=== PATIENT | female | born 1960 | race Caucasian/White ===

== ENCOUNTER 2017-04-04 07:55 | Inpatient (IN) ==
[2017-03-30 10:22] LABS: Basophils # 0.1 10*3/uL (0.0-0.2); Basophils % 0.5 % (0.0-0.8); Eosinophils # 0.2 10*3/uL (0.0-0.87); Eosinophils % 1.4 % (0.00-10.9); Hematocrit 41.5 VOL% (35.7-47.0); Hemoglobin 14.1 GM/DL (12.0-16.0); Immature Granulocytes % 0.3 %; Immature Granulocytes Absolute 0.03 #; Lymphocytes # 2.2 10*3/uL (1.4-4.0); Lymphocytes % 18.7 % (21.3-54.2); Mean Corpuscular Hemoglobin 32 PG (27-34); Mean Corpuscular Volume 94.7 FL (87-102); Mean Platelet Volume 9.3 FL (9.6-12.0); Monocytes # 0.7 10*3/uL (0.11-0.8); Monocytes % 6.2 % (1.7-12.7); Neutrophils # 8.6 10*3/uL (1.4-7.4); Neutrophils % 72.9 % (38.7-73.9); Platelet Count 316 T/CUMM (130-400); Red Blood Count 4.38 MC/CUMM (3.8-5.5); White Blood Count 11.8 T/CUMM (4-12)
[2017-03-30 10:38] LABS: PT Patient Result 10.7 SECS; Partial Thromboplastin Time 27.6 SECS (0-40)
[2017-03-30 10:57] LABS: Albumin 4.2 G/DL (3.4-5.0); Bilirubin,Total 0.8 MG/DL (0.2-1.0); Calcium 10.2 MG/DL (8.5-10.1); Osmolality,Calculated 270.8 MOS/KG (273-304); Potassium 4.5 MMOL/L (3.5-5.1); Total Protein 7.3 G/DL (6.4-8.3)
--- NOTE | 2017-03-30 10:58 | EKG Report ---
Stationary ECG Study [facility] Test Date: 03/30/2017 10:56:30 AM Pat Name: EZ NAJERA Department: Room: Gender: F Gaming Surveillance Observer: LORRAINE MORALES 04-04-17 : 1960 Requested by: Clovis Terry Order Number: [id number] Reading MD: ANNETTE BARNES Intervals [place] Rate: 66 P: 79 NE: 174 QRS: 80 QRSD: 88 T: 77 QT: 426 QTc: 439 Interpretive Statements SINUS RHYTHM Electronically Signed On 03-30-17 11:50:44 CDT by ANNETTE BARNES [email or web address]
[2017-03-30 11:02] LABS: Apearance,Urine CLEAR (Clear); Bilirubin,Urine Negative (Negative); Blood, Urine Negative (Negative); Glucose,Urine (UA) Negative (Negative); Ketones,Urine Negative (Negative); Nitrite,Urine Negative (Negative); Protein,Urine Negative; RBC,Urine 1 /HPF (0-4); Urine Color Yellow (Yellow); Urine Specific Gravity 1.003 (1.001-1.035); Urine Urobilinogen < 2.0 EU/DL (0.2-1.0); WBC,Urine <1 /HPF (0-6)
--- NOTE | 2017-03-30 13:13 | XRay Report ---
XR chest 2V Indication: Preop respiratory evaluation. Chest 2 views: Comparison 08/11/2012. Heart size and mediastinal contour are now normal. Lungs are clear except for some scattered calcified granuloma posterior left lung base. Pleural spaces are clear. No bone lesions. Breast implants noted. Impression: No acute cardiopulmonary disease. PROCEDURE INTERPRETED AT [facility] Final Report Signed by: Nima Ludwig M.D.
[~2017-04-04 07:55] MED LIST: VANCOMYCIN INJ 1,000 MG in SODIUM CHLORIDE 0.9% 250 ML IV ONE
[2017-04-04] MEDS ORDERED: ceFAZolin 1,000 MG VIAL ONE (08:10)
[2017-04-04] MEDS ORDERED: SODIUM CHLORIDE 0.9% 100 ML IV ONE (08:10)
[2017-04-04] MEDS ORDERED: DIAZEPAM 5 MG TABLET PO ONE (08:41)
[2017-04-04] MEDS ORDERED: PANTOPRAZOLE 40 MG TABLET PO ONE ×2 (08:41→08:46)
[2017-04-04] MEDS ORDERED: DIAZEPAM 5 MG TABLET ONE (08:45)
[2017-04-04] MEDS ORDERED: LACTATED RINGERS 1,000 ML IV SCH (09:00)
[2017-04-04] MEDS ORDERED: VANCOMYCIN 1,000 MG VIAL ONE (09:37)
[2017-04-04] MEDS ORDERED: TRANEXAMIC ACID 1,000 MG/10 ML VIAL IV ONE (12:31)
[2017-04-04] MEDS ORDERED: NEOMYCIN/POLYMYXIN/BACITRACIN OINT 28.4 GM TUBE TOP ONE (13:13)
[2017-04-04] MEDS ORDERED: MIDAZOLAM 2 MG/2 ML VIAL ONE (13:18)
[2017-04-04] MEDS ORDERED: fentaNYL 100 MCG/2 ML VIAL ONE (13:18)
[2017-04-04] MEDS ORDERED: diphenhydrAMINE CAP 25 MG CAPSULE PO PRN (13:31)
[2017-04-04] MEDS ORDERED: MAGNESIUM HYDROXIDE SUSP 30 ML UDCUP PO PRN (13:31)
[2017-04-04] MEDS ORDERED: ONDANSETRON 4 MG/2 ML VIAL IV PRN (13:31)
[2017-04-04] MEDS ORDERED: ZALEPLON 5 MG CAPSULE PO PRN (13:31)
[2017-04-04] MEDS ORDERED: oxyCODONE IR 5 MG TABLET PO PRN ×2 (13:31)
[2017-04-04] MEDS ORDERED: MORPHINE 2 MG/1 ML SYRINGE IV PRN ×2 (13:31)
[2017-04-04] MEDS ORDERED: ROPIVACAINE 0.5% 30 ML VIAL ONE (13:35)
--- NOTE | 2017-04-04 13:37 | Operative Note ---
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 The limb was exsanguinated with Esmarch. Tourniquet was inflated to 300 mmHg. A median parapatellar approach was made. Femur was cut using an intramedullary guide and a 4 in 1 cutting jig in 5 degrees of valgus. Because of her hyperextension, a +4 mm femoral cut was made. ACL and menisci were excised. Tibia was cut using intramedullary guide. Patella was cut using freehand technique. Components were trialed. Tibial fin was prepared. Components are cemented in place using Palacos cement and modern cementing techniques. Cement was removed. A 1/8 inch Hemovac drain was placed. The knee was well-balanced and full range of motion with central tracking patella. She extended to neutral. Deep layers closed with 0-0 Vicryl. Superficial layers were closed with 2-0 and 3-0 Vicryl. Skin was approximated with haley. Bacitracin and a sterile dressing was applied. Patient was transferred to recovery. A postoperative adductor canal block is anticipated. COMPONENTS: The Mahad Persona system was used. 9 CR narrow femur, D natural tibia, 10 mm liner, 32 mm patella TOURNIQUET TIME: 38 minutes Surgeon / Physician: Clovis Winston Jr. Results - Labs CBC & BMP: 03/30/17 10:07 03/30/17 10:07 Discharge Plan - Discharge Medications No Action Krill/Om-3/Dha/Epa/Phospho/Ast [[place]-3 Krill Oil 300 mg Sfgl] 1 each PO DAILY Gabapentin Cap/Tab [Neurontin Cap/Tab] 600 mg PO DAILY Escitalopram [Lexapro] 20 mg PO DAILY Divalproex Sodium [Divalproex Sodium ER] 500 mg PO DAILY Aspirin 81 mg PO DAILY Glatiramer Acetate [Copaxone] 40 mg SQ DIRECTED Naproxen Sodium [Aleve Cap] 440 mg PO BID Modafinil 200 mg PO DAILY - Follow Up or Referral - Forms/Instructions
--- NOTE | 2017-04-04 13:52 | Anesthesia Post-Op ---
Anesthesia Post OP - Post Ansesthetic Evaluation Patient seen in post op: Yes Resp: within normal limits CV: within normal limits Mental: within normal limits Temp: within normal limits [id number]: within normal limits Nausea and Vomiting: within normal limits Pain: within normal limits
--- NOTE | 2017-04-04 14:16 | Orthopedic Progress Note ---
Orthopedics - Subjective Interval history: Comfortable. Dressing c/d/i. Spinal is still working. Continue with orders. Exam - Constitutional Vitals: Period Temp Pulse Resp BP Sys/[place] Pulse Ox Last 24 Hr 97 F-97.8 F 52-74 16-20 101-148/62-85 96-100 Results - Labs CBC & BMP: 03/30/17 10:07 03/30/17 10:07
--- NOTE | 2017-04-04 15:38 | XRay Report ---
Exam: XR knee 2V RT Date: 04/04/2017 1:33 PM Comparison: None Indication: Knee replacement Technique:[AP and lateral right knee] Findings: Recent satisfactory right total knee replacement with postoperative findings. Impression: Recent satisfactory right total knee replacement. PROCEDURE INTERPRETED AT [facility] OF RADIOLOG[facility] Final Report Signed by: Dr. Annemarie Downs
[2017-04-04] MEDS: KETOROLAC 30 MG/1 ML VIAL IV SCH ×2 (16:27→19:21)
[2017-04-04] MEDS: DOCUSATE SODIUM 100 MG CAPSULE PO SCH (20:55)
[2017-04-04] MEDS ORDERED: VANCOMYCIN INJ 1,000 MG in SODIUM CHLORIDE 0.9% 250 ML IV ONE (21:31)
[2017-04-04 22:48] LABS: Apearance,Urine CLEAR (Clear); Bilirubin,Urine Negative (Negative); Blood, Urine Negative (Negative); Glucose,Urine (UA) Negative (Negative); Ketones,Urine Negative (Negative); Nitrite,Urine Negative (Negative); Protein,Urine Negative; Squamous Epithelial Cell,Urine Occasional /HPF (0-10); Urine Color Straw (Yellow); Urine Specific Gravity 1.003 (1.001-1.035); Urine Urobilinogen < 2.0 EU/DL (0.2-1.0)
[2017-04-05] MEDS: LACTATED RINGERS 1,000 ML IV SCH ×2 (00:56→08:59)
[2017-04-05] MEDS: KETOROLAC 30 MG/1 ML VIAL IV SCH ×2 (01:47→08:18)
[2017-04-05 05:19] LABS: Basophils % 0.5 % (0.0-0.8); Eosinophils # 0.4 10*3/uL (0.0-0.87); Hematocrit 30.9 VOL% (35.7-47.0); Hemoglobin 10.1 GM/DL (12.0-16.0); Immature Granulocytes % 0.2 %; Immature Granulocytes Absolute 0.02 #; Lymphocytes # 2.4 10*3/uL (1.4-4.0); Lymphocytes % 27.9 % (21.3-54.2); Mean Corpuscular HGB Conc 32.7 GM/DL (32-36); Mean Corpuscular Hemoglobin 32 PG (27-34); Mean Corpuscular Volume 96.9 FL (87-102); Mean Platelet Volume 9.3 FL (9.6-12.0); Monocytes # 0.9 10*3/uL (0.11-0.8); Monocytes % 10.6 % (1.7-12.7); Neutrophils # 4.8 10*3/uL (1.4-7.4); Neutrophils % 55.8 % (38.7-73.9); Platelet Count 253 T/CUMM (130-400); Red Blood Count 3.19 MC/CUMM (3.8-5.5); Red Cell Distribution Width 12.3 % (9.3-17.3); White Blood Count 8.7 T/CUMM (4-12)
[2017-04-05 05:48] LABS: Calcium 8.7 MG/DL (8.5-10.1); Osmolality,Calculated 285.7 MOS/KG (273-304); Potassium 4.2 MMOL/L (3.5-5.1)
--- NOTE | 2017-04-05 07:33 | Orthopedic Progress Note ---
Orthopedics - Subjective Interval history: Comfortable. Dressing clean, dry and intact. She can flex extend her toes and ankle. She can almost perform straight leg raise. Plan: Mobilize with physical therapy today. Plan home health therapy. Exam - Constitutional Vitals: Period Temp Pulse Resp BP Sys/[place] Pulse Ox Last 24 Hr 97 F-98.2 F 50-79 16-20 91-148/48-85 94-100 Results - Labs CBC & BMP: 04/05/17 05:00 04/05/17 05:00
[2017-04-05] MEDS: DOCUSATE SODIUM 100 MG CAPSULE PO SCH ×2 (08:15→20:02)
[2017-04-05] MEDS: GABAPENTIN 300 MG CAPSULE PO SCH (08:16)
[2017-04-05] MEDS: DIVALPROEX ER 250 MG TABLET PO SCH (08:16)
[2017-04-05] MEDS: ESCITALOPRAM 10 MG TABLET PO SCH (08:17)
[2017-04-05] MEDS: FONDAPARINUX 2.5 MG/0.5 ML SYRINGE SUBCUT SCH (08:20)
[2017-04-05] MEDS ORDERED: OMEGA KRILL OIL PO SCH (09:00)
[2017-04-05] MEDS ORDERED: MODAFINIL 200 MG PO SCH (09:00)
[2017-04-05] MEDS ORDERED: ACETAMINOPHEN 325 MG TABLET PO PRN (13:32)
[2017-04-05] MEDS: CELECOXIB 200 MG CAPSULE PO SCH (20:08)
[2017-04-06 06:32] LABS: Basophils # 0.1 10*3/uL (0.0-0.2); Basophils % 0.5 % (0.0-0.8); Eosinophils # 0.4 10*3/uL (0.0-0.87); Eosinophils % 4.5 % (0.00-10.9); Hematocrit 29.9 VOL% (35.7-47.0); Hemoglobin 9.9 GM/DL (12.0-16.0); Immature Granulocytes % 0.2 %; Immature Granulocytes Absolute 0.02 #; Lymphocytes # 2.5 10*3/uL (1.4-4.0); Lymphocytes % 26.6 % (21.3-54.2); Mean Corpuscular HGB Conc 33.1 GM/DL (32-36); Mean Corpuscular Hemoglobin 32 PG (27-34); Mean Corpuscular Volume 97.4 FL (87-102); Mean Platelet Volume 9.9 FL (9.6-12.0); Monocytes # 1.2 10*3/uL (0.11-0.8); Monocytes % 13.1 % (1.7-12.7); Neutrophils # 5.1 10*3/uL (1.4-7.4); Neutrophils % 55.1 % (38.7-73.9); Platelet Count 259 T/CUMM (130-400); Red Blood Count 3.07 MC/CUMM (3.8-5.5); Red Cell Distribution Width 12.4 % (9.3-17.3); White Blood Count 9.3 T/CUMM (4-12)
--- NOTE | 2017-04-06 07:20 | Orthopedic Progress Note ---
Orthopedics - Subjective Interval history: Comfortable. Dressing clean, dry and intact. Right lower extremity neurovascularly unchanged. She demonstrates weakness with her tibialis anterior which is unchanged from preoperatively. Plan: We will order an ankle-foot orthosis. Mobilize with physical therapy. Discharge planning. Exam - Constitutional Vitals: Period Temp Pulse Resp BP Sys/[place] Pulse Ox Last 24 Hr 96.9 F-98.9 F 55-65 16-18 84-120/51-66 91-96 Results - Labs CBC & BMP: 04/06/17 05:01 04/05/17 05:00 Specialty Discharge - Follow Up or Referrals Follow up with: Clovis Winston Jr., MD [Physician] -
[2017-04-06] MEDS: GABAPENTIN 300 MG CAPSULE PO SCH (09:27)
[2017-04-06] MEDS: ESCITALOPRAM 10 MG TABLET PO SCH (09:31)
[2017-04-06] MEDS: DIVALPROEX ER 250 MG TABLET PO SCH (09:32)
[2017-04-06] MEDS: FONDAPARINUX 2.5 MG/0.5 ML SYRINGE SUBCUT SCH (09:33)
[2017-04-06] MEDS: DOCUSATE SODIUM 100 MG CAPSULE PO SCH ×2 (09:37→20:56)
[2017-04-06] MEDS: CELECOXIB 200 MG CAPSULE PO SCH (20:56)
[2017-04-07 04:47] LABS: Basophils % 0.3 % (0.0-0.8); Eosinophils # 0.1 10*3/uL (0.0-0.87); Eosinophils % 0.8 % (0.00-10.9); Hematocrit 26.1 VOL% (35.7-47.0); Hemoglobin 8.7 GM/DL (12.0-16.0); Immature Granulocytes % 0.3 %; Immature Granulocytes Absolute 0.03 #; Lymphocytes # 2.2 10*3/uL (1.4-4.0); Lymphocytes % 21.9 % (21.3-54.2); Mean Corpuscular HGB Conc 33.3 GM/DL (32-36); Mean Corpuscular Hemoglobin 32 PG (27-34); Mean Corpuscular Volume 94.9 FL (87-102); Mean Platelet Volume 9.9 FL (9.6-12.0); Monocytes # 1.5 10*3/uL (0.11-0.8); Monocytes % 14.9 % (1.7-12.7); Neutrophils # 6.1 10*3/uL (1.4-7.4); Neutrophils % 61.8 % (38.7-73.9); Platelet Count 246 T/CUMM (130-400); Red Blood Count 2.75 MC/CUMM (3.8-5.5); Red Cell Distribution Width 12.1 % (9.3-17.3); White Blood Count 9.8 T/CUMM (4-12)
[2017-04-07] MEDS ORDERED: BISACODYL 10 MG SUPP RECTAL ONE (08:13)
--- NOTE | 2017-04-07 08:21 | Orthopedic Progress Note ---
Orthopedics - Subjective Interval history: Ms. Koch is asking to have her IV removed. She has had problems with urinary retention since her Klein catheter was removed yesterday. Her bladder scan showed 748 cc. Dressing is clean, dry and intact. Right lower extremities neurovascularly unchanged. Plan: Consult urology for suggestions for urinary retention in light of her multiple sclerosis. The patient still desires to go home. We will plan discharge tomorrow. Work on a bowel movement. Exam - Constitutional Vitals: Period Temp Pulse Resp BP Sys/[place] Pulse Ox Last 24 Hr 96.4 F-97.5 F 59-75 18-20 86-126/50-85 18-99 Results - Labs CBC & BMP: 04/07/17 04:03 04/05/17 05:00 Specialty Discharge - Follow Up or Referrals Follow up with: Clovis Winston Jr., MD [Physician] -
[2017-04-07] MEDS: GABAPENTIN 300 MG CAPSULE PO SCH (08:56)
[2017-04-07] MEDS: ESCITALOPRAM 10 MG TABLET PO SCH (08:56)
[2017-04-07] MEDS: DIVALPROEX ER 250 MG TABLET PO SCH (08:56)
[2017-04-07] MEDS: FONDAPARINUX 2.5 MG/0.5 ML SYRINGE SUBCUT SCH (08:56)
[2017-04-07] MEDS: DOCUSATE SODIUM 100 MG CAPSULE PO SCH ×2 (09:02→20:58)
--- NOTE | 2017-04-07 14:40 | Urology Consultation ---
History of Present Illness - Data of Consult Consult date: 04/07/17 - Consult Narrative History of present illness: Ms. Koch is a 56 year old female The patient is known to me this 56-year-old white female with MS has a past history of urinary retention and was on intermittent catheterization at one time in the past. She now has urinary retention postoperatively and is voiding very little. Going recommend that we continue to do catheterization 4 times a day while here and continue this post discharge. I will order the catheters and have him sent to her house. CC: Clovis Winston Jr., - Home Medications and Allergies Home Medications: Home Medications Medication Instructions Recorded Confirmed Type Aspirin 81 mg PO DAILY 03/30/17 04/04/17 History Divalproex Sodium [Divalproex 500 mg PO DAILY 03/30/17 04/04/17 History Sodium ER] Escitalopram [Lexapro] 20 mg PO DAILY 03/30/17 04/04/17 History Gabapentin Cap/Tab [Neurontin 600 mg PO DAILY 03/30/17 04/04/17 History Cap/Tab] Glatiramer Acetate [Copaxone] 40 mg SQ MOWEFR 03/30/17 04/04/17 History Krill/Om-3/Dha/Epa/Phospho/Ast 1 each PO DAILY 03/30/17 04/04/17 History [[place]-3 Krill Oil 300 mg Sfgl] Modafinil 200 mg PO DAILY 03/30/17 04/04/17 History Naproxen Sodium [Aleve Cap] 440 mg PO BID 03/30/17 04/04/17 History Allergies/Adverse Reactions: Allergies Allergy/AdvReac Type Severity Reaction Status Date / Time No Known Allergies Allergy Verified 03/30/17 10:13 Medical,Surgical,& Family Hx - Medical History Psychological: History of: Depression Neurology: History of: Multiple Sclerosis (DR CERVANTES.) No history of: Seizures Respiratory: No history of: Respiratory Problems (FLU VAC-NO; PNEU VAC- NO. RT LUNG COLLAPSED DUE TO RIB FX 2011.) Gastrointestinal: History of: GI Problems (OCCASIONAL DIARRHEA.) Musculoskeletal: History of: Musculoskeletal Problems (RIB FX RT SIDE.) Other: History of: Anesthesia Reactions (PT HAD PROBLEMS AFTER COLLAPSED LUNG.) - Surgical History HEENT Surgeries: Surgical HX of: Eye Surgery (LASIX EYE SURGERY ABY) Reproductive Surgeries: Surgical HX of;: Breast Surgery (BREAST IMPLANTS.) Orthopedic Surgeries: Surgical HX of;: Total Knee Replacement (RIGHT) - Family History Family History: Reports;: Family Cancer (PARENTS), Family Heart Disease (BROTHER ), Family Hypertension (BROTHER) - Social History Smoking Status: Current every day smoker Frequency of Alcohol Use: Rarely Type of Drug Use: None Exam - Constitutional Vitals: Period Temp Pulse Resp BP Sys/[place] Pulse Ox Last 24 Hr 96.4 F-98.6 F 59-88 18-20 86-126/50-85 18-99 Results - Labs CBC & BMP: 04/07/17 04:03 04/05/17 05:00 Specialty Discharge - Follow Up or Referrals Follow up with: Clovis Winston Jr., MD [Physician] -
[2017-04-07] MEDS: CELECOXIB 200 MG CAPSULE PO SCH (20:58)
--- NOTE | 2017-04-08 08:00 | Urology Progress Note ---
Urology - PN: Subj Interval history: The patient will continue intermittent catheterization while she is here and I have ordered catheters to be sent to the house for her to do intermittent self- catheterization at home which she has done before. Exam - Constitutional Vitals: Period Temp Pulse Resp BP Sys/[place] Pulse Ox Last 24 Hr 97.0 F-99.7 F 60-88 16-18 82-115/49-63 95-100 Results - Labs CBC & BMP: 04/07/17 04:03 04/05/17 05:00 Specialty Discharge - Follow Up or Referrals Follow up with: Clovis Winston Jr., MD [Physician] -
--- NOTE | 2017-04-08 08:07 | Orthopedic Progress Note ---
Orthopedics - Subjective Interval history: Ms. Koch is adamant about going home. She does not want to go to a swing bed. Her dressing is clean, dry and intact. Right lower extremities neurovascularly unchanged. Plan: Discharge today after physical therapy. Discharge instructions were reviewed. Set up home health therapy. Exam - Constitutional Vitals: Period Temp Pulse Resp BP Sys/[place] Pulse Ox Last 24 Hr 97.0 F-99.7 F 60-88 16-18 82-115/49-63 95-100 Results - Labs CBC & BMP: 04/07/17 04:03 04/05/17 05:00 Specialty Discharge - Follow Up or Referrals Follow up with: Clovis Winston Jr., MD [Physician] -
--- NOTE | 2017-04-08 08:10 | Discharge Summary ---
Hospital Course - Hospital Course Hospital Course: Mrs. Koch was admitted after undergoing a right total knee arthroplasty for hyperextension deformity secondary to her multiple sclerosis and knee osteoarthritis. She received perioperative DVT and antimicrobial prophylaxis. She received physical therapy. She was discharged home with home health therapy. The patient was slow to progress with physical therapy. She did not want to go to a swing bed. The patient had problems with urinary retention. Dr. Jasso was consulted. She had self catheterized herself in the past. He set her up for home self- catheterization. Specialty Discharge - Follow Up or Referrals Follow up with: Clovis Winston Jr., MD [Physician] - Discharge Plan - Discharge Data Disposition: Home Health Service Discharge Diet: advance to your usual diet Activity: ambulate only with your walker Hygiene: may shower Weight Bearing at Discharge: weight bear as tolerated - Discharge Medications Continue Krill/Om-3/Dha/Epa/Phospho/Ast [[place]-3 Krill Oil 300 mg Sfgl] 1 each PO DAILY Gabapentin Cap/Tab [Neurontin Cap/Tab] 600 mg PO DAILY Escitalopram [Lexapro] 20 mg PO DAILY Divalproex Sodium [Divalproex Sodium ER] 500 mg PO DAILY Aspirin 81 mg PO DAILY Glatiramer Acetate [Copaxone] 40 mg SQ MOWEFR Naproxen Sodium [Aleve Cap] 440 mg PO BID Modafinil 200 mg PO DAILY - Follow Up or Referral Follow Up: Clovis Winston Jr., MD [Physician] - - Forms/Instructions Additional Discharge Instructions: Daily dry dressing changes. Weightbearing as tolerated. Arrange walker and bedside commode for home use. Wear PHILLIP hose for 1 month. Discontinue haley and Steri-Strip wound on April 13, 2017. Follow-up appointment in 3 weeks. Prescription for [place] 7.5 was written. Exam - Constitutional Vitals: Period Temp Pulse Resp BP Sys/[place] Pulse Ox Last 24 Hr 97.0 F-99.7 F 60-88 16-18 82-115/49-63 95-100 DS: Provider Date of admission: 04/04/17 07:55 Primary care physician: Brandon Olmstead MD Attending physician on admission: Clovis Winston Jr., Consults: 04/04/17 13:31 Consult to Case Mgmt/Social Srvs [CONS] Routine Reason for Case Mgmt/Social Srvs: Rehab Home Health Equipment Consult Comment: Bedside Commode, CPM, Walker Consult to Occupational Therapy [CONS] Routine Reason for Occupational Therapy: Evaluate and Treat Consult Comment: ADL's Consult to Physical Therapy [CONS] Routine Reason for Physical Therapy: Evaluate and Treat Gait Training Start Therapy: As Tolerated Consult Comment: no cpm 04/07/17 08:14 Consult to Physician [CONS] Routine Comment: multiple sclerosis, urinary retention Consulting Provider: Dylan Jasso Consulting Provider Notified: Yes When should Consulting Provider be notified: Now Consult to Specialist Group: Urology Person Notified: kevin case Date Notified: 04/07/17 Time Notified: 09:06 04/07/17 14:56 Consult to Case Mgmt/Social Srvs [CONS] Routine Reason for Case Mgmt/Social Srvs: Equipment Consult Comment: please get in and out catheter supplies for home use 04/07/17 17:24 Consult to Physical Therapy [CONS] Routine Reason for Physical Therapy: Other Consult Comment: Deliver Standard Walker to Pt in before D/C home f/home rehab. Discharging clinician: Clovis Winston Jr., Expected date of discharge: 04/08/17
[2017-04-08] MEDS: GABAPENTIN 300 MG CAPSULE PO SCH (09:57)
[2017-04-08] MEDS: DIVALPROEX ER 250 MG TABLET PO SCH (09:58)
[2017-04-08] MEDS: DOCUSATE SODIUM 100 MG CAPSULE PO SCH (09:58)
[2017-04-08] MEDS: ESCITALOPRAM 10 MG TABLET PO SCH (09:58)
[2017-04-08] MEDS: FONDAPARINUX 2.5 MG/0.5 ML SYRINGE SUBCUT SCH (09:59)
[2017-04-08 12:33] VITALS: BP 101/64
== END 2017-04-08 13:15 | disposition home health service (06) | DRG 470 ==
LOC: N.SDSINP 07:55 → N.3E 14:34
PROVIDERS: ADMIT Orthopaedic Surgery; ATTEND Orthopaedic Surgery